=== PATIENT | male | born 1940 | race Caucasian/White ===

== ENCOUNTER 2017-10-09 09:21 | Emergency (ER) | payer OTHER ==
--- NOTE | 2017-10-09 10:17 | ED ---
Lower Extremity - HPI Summary HPI Summary: This patient is a 77 year old M presenting to [facility] with a chief complaint of bilateral LE pain while walking since a week ago. pt endorses falling repeatedly recently. Notes the pain is half-way up his marte. Pt lives with , is [place]. Denies weakness, denies pain currently. 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 Hx smoking. Level 5 caveat: HPI unobtainable due to extreme hearing loss. - History of Current Complaint Chief Complaint: EDGeneral Stated Complaint: GENERAL Time Seen by Provider: 10/09/17 09:44 Hx Obtained From: Patient Hx From Patient Unobtainable Due To: Other - extremely [place] Onset of Pain: Prior to Arrival Onset/Duration: Resolved Severity Initially: Mild Severity Currently: Mild Pain Intensity: 0 Pain Scale Used: 0-10 Numeric Timing: Intermittent - when walking Location: Is Diffuse - bilateral distal lower extremities Character Of Pain: Unable To Describe Associated Signs And Symptoms: Positive: Redness. Negative: Weakness Aggravating Factor(s): Standing, Ambulation Alleviating Factor(s): Rest Able to Bear Weight: Yes - Allergies/Home Medications Allergies/Adverse Reactions: Allergies Allergy/AdvReac Type Severity Reaction Status Date / Time No Known Allergies Allergy Verified 08/31/13 20:27 Home Medications: Home Medications Aspirin 81 mg PO DAILY 10/09/17 [History Confirmed 10/09/17] Atorvastatin* [Lipitor 80 MG*] 80 mg PO DAILY 10/09/17 [History Confirmed ] Lisinopril/HCTZ 1012.5(NF) [Zestoretic 1012.5(NF)] 1 tab PO DAILY 10/09/17 [ History Confirmed 10/09/17] PMH/Surg Hx/FS Hx/Imm Hx Endocrine/Hematology History: Reports: Hx Diabetes Cardiovascular History: Reports: Other Cardiovascular Problems/Disorders - 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 Substance Use Type: Reports: None Hx Tobacco Use: Yes Smoking Status (MU): Former Smoker Review of Systems - ROS Summary Review of Systems Summary: Level 5 caveat: Full ROS unobtainable due to pt severe [place]. Negative: Fever Positive: frequency Positive: Arthralgia, Myalgia Positive: Other - ulcer left big toe, redness Negative: Weakness All Other Systems Reviewed And Are Negative: Yes Physical Exam - Summary Physical Exam Summary: Appearance: ill appearing, no pain distress Skin: warm, dry, reflects adequate perfusion, thin and frail, superficial areas of bruising on both forearms, erythema left ankle and foot, healing ulcer on left great toe. Feet are warm with good capillary refill. Head/face: normal Eyes: EOMI, CHRIS ENT: normal Neck: supple, non-tender Respiratory: CTA, breath sounds present but a little diminished, no wheeze, rales or rhonchi. Cardiovascular: RRR, bilateral DP pulses absent, radial pulses diminshed. Heart sounds diminished with occasional irregularity. Abdomen: non-tender, soft Bowel Sounds: present Musculoskeletal: normal, strength/ROM intact Neuro: normal, sensory motor intact, A&Ox3 Triage Information Reviewed: Yes Vital Signs On Initial Exam: Initial Vitals Temp Pulse Resp BP Pulse Ox 98.4 F 93 18 171/80 98 10/09/17 09:28 10/09/17 09:28 10/09/17 09:28 10/09/17 09:28 10/09/17 09:28 Vital Signs Reviewed: Yes Diagnostics - Vital Signs Vital Signs Temp Pulse Resp BP Pulse Ox 10/09/17 10:07 79 23 130/70 97 10/09/17 10:00 81 17 97 10/09/17 09:36 83 19 171/61 93 10/09/17 09:28 98.4 F 93 18 171/80 98 - Laboratory Lab Statement: Any lab studies that have been ordered have been reviewed, and results considered in the medical decision making process. Re-Evaluation - Re-Evaluation First Eval Re-Evaluation Time: 11:14 Change: Unchanged Comment: Obtained more background, pt won't see his doctor. Upon further exam found a small sacral cupidus ulcer. Lower Extremity Course/Dx - Course Course Of Treatment: Patient presents with pain from chronic claudication. His family reports that it had been suggested that he see the vascular surgeon likely have a procedure. He had refused to do so. His pain is intermittent and always with exertion. He is pain-free at present. This changed later in the exam when he wished for something for pain. I did give him one [place] then. We will try low-dose hydrocodone at home with close follow-up with family doctor, vascular surgeon. It is likely that he will need bypass or some other sort of arterial procedure. The question is if the patient is medically sound for such a procedure given his comorbidities. - Diagnoses Provider Diagnoses: Leg pain, bilateral, Sacral decubitus ulcer, Claudication, Peripheral artery insufficiency Discharge - Sign-Out/Discharge Documenting (check all that apply): Patient Departure - discharge - Discharge Plan Condition: Stable Disposition: HOME Prescriptions: Docusate Sodium [Colace] 100 mg PO BID #30 capsule HYDROcodone/ACETAMIN 5-325 MG* [[place] 5-325 TAB*] 0.5 tab PO Q6H PRN #15 tab MDD 3 PRN Reason: Pain Patient Education Materials: Peripheral Vascular Disease (ED), Pressure Injury (ED) Referrals: Itzel Davis MD [Primary Care Provider] - Additional Instructions: You must follow-up with your doctor and the vascular surgeon. He likely need a operation to improve the pain in her legs. The closest location that this is done is in [place], [place]. Your doctor on Wednesday to schedule home health with nurse comes to the home. Return if worse, new symptoms, uncontrolled pain or other concerns. - Billing Disposition and Condition Condition: STABLE Disposition: Home
[2017-10-09] MEDS ORDERED: HYDROcodone/ACETAMIN 5-325 MG* 1 TAB PO ONE (11:21)
[2017-10-09 12:04] VITALS: BP 148/86
== END 2017-10-09 12:02 | disposition home or self-care (01) ==
LOC: ED 09:21
DX: I73.9 Peripheral vascular disease, unspecified (principal); M79.605 Pain in left leg; M79.604 Pain in right leg; L89.159 Pressure ulcer of sacral region, unspecified stage; Z79.82 Long term (current) use of aspirin; Z79.899 Other long term (current) drug therapy; Z87.891 Personal history of nicotine dependence
CPT/HCPCS: 99284